=== PATIENT | male | born 1960 | race Caucasian/White ===

== ENCOUNTER → 2016-11-27 | Outpatient (CLI) | payer BC | END | disposition home or self-care (01) | LOC: RAD 13:33 | DX: M25.512 Pain in left shoulder (principal) ==

== ENCOUNTER 2018-05-16 16:09 | Emergency (ER) | payer BC, OTHER ==
[~2018-05-16] VITALS: Ht 177.8 cm; Wt 68.0 kg
--- NOTE | ~2018-05-16 | EKG ---
[place], [place] ELECTROCARDIOGRAM REPORT NAME: PAWAN KOWALSKI UNIT #: [id number] ROOM: DOCTOR: MALINDA DEVLIN MD BIRTHDATE: [birth year] DOS: 05/16/2018 TIME: 1615 hours. FINDINGS: 1. Normal sinus rhythm at 72 beats per minute. 2. The tracing is normal. 3. No previous tracing is available for comparison. MALINDA DEVLIN MD CM:EKGRPT:ELECTROCARDIOGRAM REPORT [id number] MALINDA DEVLIN MD
== END 2018-05-16 16:51 | disposition short-term general hospital (02) ==
LOC: ED 16:09
DX: S61.412A Laceration without foreign body of left hand, initial encounter (principal); S61.411A Laceration without foreign body of right hand, initial encounter; S01.81XA Laceration without foreign body of other part of head, initial encounter; S81.012A Laceration without foreign body, left knee, initial encounter; S81.011A Laceration without foreign body, right knee, initial encounter; S91.012A Laceration without foreign body, left ankle, initial encounter; S91.011A Laceration without foreign body, right ankle, initial encounter; Z87.442 Personal history of urinary calculi; V19.88XA Pedal cyclist (driver) (passenger) injured in other specified transport accidents, initial encounter; Y93.55 Activity, bike riding; Y92.413 State road as the place of occurrence of the external cause; Y99.9 Unspecified external cause status

== ENCOUNTER 2021-11-25 19:48 | Emergency (ER) | payer OTHER, MEDICARE ==
[~2021-11-25] VITALS: Ht 177.8 cm; Wt 63.5 kg
[2021-11-25] MEDS ORDERED: NAPROXEN250 MG PO (20:44)
[2021-11-25] MEDS ORDERED: METHOCARBAMOL500 M1 PO (20:44)
== END 2021-11-25 21:00 | disposition home or self-care (01) ==
LOC: ED 19:48
DX: S20.219A Contusion of unspecified front wall of thorax, initial encounter (principal); V49.49XA Driver injured in collision with other motor vehicles in traffic accident, initial encounter; Y93.89 Activity, other specified; Y92.89 Other specified places as the place of occurrence of the external cause; Y99.8 Other external cause status